=== PATIENT | male | born 1990 | race Hispanic/Latino ===

== ENCOUNTER 2018-01-30 11:58 | Emergency (ER) | payer OTHER, SELFPAY ==
[2018-01-30] MEDS ORDERED: NA CHLORIDE 0.9% 1,000 ML ONE ×2 (12:58→14:17)
--- NOTE | 2018-01-30 13:07 | RAD REPORT ---
EXAM DESCRIPTION: RAD - Chest Single View - 01/30/2018 12:59 pm CLINICAL HISTORY: Chest pain COMPARISON: None. TECHNIQUE: AP portable chest image was obtained 1247 hours . FINDINGS: Lungs are clear. Heart and vasculature are normal. No measurable pleural effusion and no p neumothorax. No gross bony abnormality seen. No acute aortic findings suspected. IMPRESSION: No acute cardiopulmonary process.
[2018-01-30 13:30] LABS: Absolute Lymphocytes (CBC) 1.7 K/uL (0.7-4.9); Absolute Monocytes 0.7 K/uL (0.1-1.3); Absolute Neutrophil 11.4 K/uL (1.8-8.0); Basophils % 0.7 % (0-1.3); Eosinophils % 0.3 % (0-4.4); Hematocrit 42.4 % (39.6-49.0); Lymphocytes % 12.3 % (15.3-44.8); MCH 26.6 pg (27.0-35.0); MCV 81.3 fL (80-100); MPV 8.8 fL (7.6-11.3); Monocytes % 4.8 % (3.3-12.3); RBC Red Blood Cell Count 5.21 M/uL (4.33-5.43)
[2018-01-30 13:35] LABS: Protime INR 1.13
[2018-01-30 13:46] LABS: Potassium 3.8 mEq/L (3.6-5.0)
[2018-01-30 13:52] LABS: Albumin 4.3 g/dL (3.2-5.5); Bilirubin Direct 0.1 mg/dL (0-0.2); Bilirubin Total 0.5 mg/dL (0.3-1.2); Magnesium 1.7 mg/dL (1.8-2.5); Protein, Total 7.9 g/dL (6.0-8.3)
[2018-01-30 13:55] LABS: CKMB Creatine Kinase MB 2.7 ng/ml (0.3-4.0)
[2018-01-30] MEDS ORDERED: MAGNESIUM OXIDE 400 MG TAB ONE (14:17)
[2018-01-30 14:25] LABS: Thyroid Stimulating Hormone 1.12 uIU/mL (0.34-5.60)
--- NOTE | 2018-01-30 15:00 | EKG ---
Test Date: 2018-01-30 Test Time: 12:36:37 Pig Machine Operator: ANA MARIA MEASUREMENT RESULTS: Intervals: Rate: 83 MT: 146 QRSD: 92 QT: 360 QTc: 423 [place]: P: 22 MT: 146 QRS: 11 T: 1 INTERPRETIVE STATEMENTS: Normal sinus rhythm Normal ECG No previous ECG available for comparison Electronically Signed On 01-30-18 14:58:57 CDT by Greg Rosales
[2018-01-30 16:24] LABS: Urine Blood NEGATIVE (NEG); Urine Glucose NEGATIVE (NEG); Urine Protein NEGATIVE (NEG); Urine Specific Gravity 1.015 (1.005-1.030)
--- NOTE | 2018-01-30 16:41 | ER ---
Nurse's Notes [facility] Name: Logan Polk Age: 27 yrs Sex: Male : 1990 Arrival Date: 01/30/2018 Time: 12:02 Bed 24 Private MD: None, None Diagnosis: Palpitations;Chest pain, unspecified Presentation: 01/30 12:05 Presenting complaint: Patient states: Palpitations and SOB while working outside today. 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 Denies cardiac hx/pain. Transition of care: patient was not received from another setting of care. Onset of symptoms was January 30, 2018. Care prior to arrival: None. 12:05 Method Of Arrival: Ambulatory hb 12:05 Acuity: ANTON 3 hb 13:32 Risk Assessment: Do you want to hurt yourself or someone else? Patient reports no aj1 desire to harm self or others. Initial Sepsis Screen: Does the patient meet any 2 criteria? No. Patient's initial sepsis screen is negative. Does the patient have a suspected source of infection? No. Patient's initial sepsis screen is negative. Triage Assessment: 13:32 Respiratory: Onset: The symptoms/episode began/occurred suddenly. aj1 Historical: - Allergies: 12:07 No Known Allergies; hb - Home Meds: 12:07 None [Active]; hb - PMHx: 12:07 None; hb - PSHx: 12:07 None; hb - Immunization history:: Adult Immunizations up to date. - Social history:: Smoking status: Patient uses tobacco products, chewing tobacco. - Ebola Screening: : No symptoms or risks identified at this time. Screenin:30 Abuse screen: Denies threats or abuse. Denies injuries from another. Nutritional aj1 screening: No deficits noted. Tuberculosis screening: No symptoms or risk factors identified. 16:54 Fall Risk None identified. ss Assessment: 13:30 General: Appears in no apparent distress. comfortable, Behavior is calm, cooperative, aj1 appropriate for age. Pain: Denies pain. Neuro: Level of Consciousness is awake, alert, obeys commands, Oriented to person, place, time, situation, Speech is normal, Facial symmetry appears normal. Cardiovascular: Reports palpitations, that has now resolved Denies chest pain, Heart tones S1 S2 present Patient's skin is warm and dry. Rhythm is sinus rhythm. Respiratory: Reports shortness of breath Airway is patent Respiratory effort is even, unlabored, Respiratory pattern is regular, symmetrical, Breath sounds are clear bilaterally. the patient reports symptoms have resolved. GI: No signs and/or symptoms were reported involving the gastrointestinal system. : No signs and/or symptoms were reported regarding the genitourinary system. EENT: No signs and/or symptoms were reported regarding the EENT system. Derm: No signs and/or symptoms reported regarding the dermatologic system. Skin is pink, warm \T\ dry. normal. Musculoskeletal: No signs and/or symptoms reported regarding the musculoskeletal system. Circulation, motion, and sensation intact. 14:25 Reassessment: Patient appears in no apparent distress at this time. No changes from aj1 previously documented assessment. Patient and/or family updated on plan of care and expected duration. Pain level reassessed. Patient is alert, oriented x 3, equal unlabored respirations, skin warm/dry/pink. 15:26 Reassessment: Patient appears in no apparent distress at this time. No changes from aj1 previously documented assessment. Patient and/or family updated on plan of care and expected duration. Pain level reassessed. Patient is alert, oriented x 3, equal unlabored respirations, skin warm/dry/pink. 16:38 Reassessment: Patient appears in no apparent distress at this time. No changes from aj1 previously documented assessment. Patient and/or family updated on plan of care and expected duration. Pain level reassessed. Patient is alert, oriented x 3, equal unlabored respirations, skin warm/dry/pink. Vital Signs: 12:06 BP 158 / 100; Pulse 94; Resp 18; Temp 98.5; Pulse Ox 97% on R/A; Weight 127.01 kg; hb Height 6 ft. (182.88 cm); Pain 0/10; 13:30 BP 119 / 65; Pulse 86; Resp 18; Pulse Ox 97% on R/A; aj1 14:25 BP 108 / 87; Pulse 79; Resp 18; Pulse Ox 100% ; aj1 15:20 BP 132 / 77 Supine; Pulse 78; aj1 15:22 BP 131 / 86 Sitting; Pulse 80; aj1 15:24 BP 132 / 88 Standing; Pulse 78; aj1 16:38 BP 128 / 75; Pulse 76; Resp 18; Pulse Ox 99% on R/A; aj1 12:06 Body Mass Index 37.97 (127.01 kg, 182.88 cm) hb ED Course: 12:02 Patient arrived in ED. sb2 12:02 None, None is Private Physician. sb2 12:02 Zeenat Mondragon [facility]-C [facility]. snw 12:02 Cecil Olivo MD is Attending Physician. snw 12:06 Triage completed. hb 12:08 Arm band placed on left wrist. hb 12:52 X-ray completed. Portable x-ray completed in exam room. jr1 12:53 EKG done, by oil and gas exploration technician. reviewed by Zeenat VALLES. sm3 12:55 Ana Maurer, RN is Primary Nurse. aj1 13:00 XRAY Chest (1 view) In Process Unspecified. EDMS 13:30 Patient has correct armband on for positive identification. Bed in low position. Call aj1 light in reach. Side rails up X 1. quality assurance monitor chassis on. Pulse ox on. NIBP on. 13:30 No provider procedures requiring assistance completed. aj1 16:54 IV discontinued, intact, bleeding controlled, No redness/swelling at site. Pressure ss dressing applied. Administered Medications: 13:28 Drug: NS 0.9% 1000 ml Route: IV; Rate: 1 bolus; Site: right antecubital; aj1 14:24 Follow up: IV Status: Completed infusion; IV Intake: 1000ml aj1 14:24 Drug: Magnesium Oxide 400 mg Route: PO; aj1 15:18 Follow up: Response: No adverse reaction aj1 14:24 Drug: NS 0.9% 1000 ml Route: IV; Rate: 1 bolus; Site: right antecubital; aj1 15:27 Follow up: IV Status: Completed infusion; IV Intake: 1000ml aj1 Intake: 14:24 IV: 1000ml; Total: 1000ml. aj1 15:27 IV: 1000ml; Total: 2000ml. aj1 Outcome: 16:41 Discharge ordered by . snw 16:54 Discharged to home ambulatory. ss 16:54 Condition: good 16:54 Discharge instructions given to patient, family, Instructed on discharge instructions, follow up and referral plans. Demonstrated understanding of instructions, follow-up care. 16:55 Patient left the ED. ss Signatures: Dispatcher [employer] EDOR Ana Maurer RN RN aj1 Zeenat Mondragon, CONTRACT ANALYST-C CONTRACT ANALYST-Csnw Fabienne Schwartz jr1 Eugenia Ovalles RN RN ss Serene Guerra RN RN Oma Melchor sb2 Clary Finney 3
--- NOTE | 2018-01-30 16:41 | EDPHYS ---
Physician Documentation [facility] Name: Logan Polk Age: 27 yrs Sex: Male : 1990 Arrival Date: 01/30/2018 Time: 12:02 Bed 24 Private MD: None, None ED Physician Cecil Olivo HPI: 01/30 13:09 This 27 yrs old Male presents to ER via Ambulatory with complaints of snw Shortness Of Breath. 13:09 The patient has shortness of breath during heavy activity. Onset: The symptoms/episode snw began/occurred suddenly. Duration: The symptoms are intermittent. Associated signs and symptoms: Pertinent positives: dizziness, weakness, felt like he was going to fall. Severity of symptoms: At their worst the symptoms were moderate severe. The patient has not experienced similar symptoms in the past. The patient has not recently seen a physician, went to the medical tent and pt's HR was 170s. Historical: - Allergies: 12:07 No Known Allergies; hb - Home Meds: 12:07 None [Active]; hb - PMHx: 12:07 None; hb - PSHx: 12:07 None; hb - Immunization history:: Adult Immunizations up to date. - Social history:: Smoking status: Patient uses tobacco products, chewing tobacco. - Ebola Screening: : No symptoms or risks identified at this time. ROS: 13:07 Eyes: Negative for injury, pain, redness, and discharge, ENT: Negative for injury, snw pain, and discharge, Neck: Negative for injury, pain, and swelling, Cardiovascular: Negative for chest pain and edema, palpitations 13:07 Back: Negative for injury and pain, : Negative for injury, bleeding, discharge, and swelling, MS/Extremity: Negative for injury and deformity, Skin: Negative for injury, rash, and discoloration. 13:07 Constitutional: Positive for body aches. 13:07 Respiratory: Positive for shortness of breath. 13:07 Abdomen/GI: Positive for nausea. 13:07 Neuro: Positive for dizziness, weakness. Exam: 13:07 Constitutional: This is a well developed, well nourished patient who is awake, alert, snw and in no acute distress. Head/Face: Normocephalic, atraumatic. Eyes: Pupils equal round and reactive to light, extra-ocular motions intact. Lids and lashes normal. Conjunctiva and sclera are non-icteric and not injected. Cornea within normal limits. Periorbital areas with no swelling, redness, or edema. ENT: Nares patent. No nasal discharge, no septal abnormalities noted. Tympanic membranes are normal and external auditory canals are clear. Oropharynx with no redness, swelling, or masses, exudates, or evidence of obstruction, uvula midline. Mucous membranes moist. Neck: Trachea midline, no thyromegaly or masses palpated, and no cervical lymphadenopathy. Supple, full range of motion without nuchal rigidity, or vertebral point tenderness. No Meningismus. Chest/axilla: Normal chest wall appearance and motion. Nontender with no deformity. No lesions are appreciated. Cardiovascular: Regular rate and rhythm with a normal S1 and S2. No gallops, murmurs, or rubs. Normal PMI, no JVD. No pulse deficits. Respiratory: Lungs have equal breath sounds bilaterally, clear to auscultation and percussion. No rales, rhonchi or wheezes noted. No increased work of breathing, no retractions or nasal flaring. Abdomen/GI: Soft, non-tender, with normal bowel sounds. No distension or tympany. No guarding or rebound. No evidence of tenderness throughout. Back: No spinal tenderness. No costovertebral tenderness. Full range of motion. Skin: Warm, dry with normal turgor. Normal color with no rashes, no lesions, and no evidence of cellulitis. MS/ Extremity: Pulses equal, no cyanosis. Neurovascular intact. Full, normal range of motion. Neuro: Awake and alert, GCS 15, oriented to person, place, time, and situation. Cranial nerves II-XII grossly intact. Motor strength 5/5 in all extremities. Sensory grossly intact. Cerebellar exam normal. Normal gait. Vital Signs: 12:06 BP 158 / 100; Pulse 94; Resp 18; Temp 98.5; Pulse Ox 97% on R/A; Weight 127.01 kg; hb Height 6 ft. (182.88 cm); Pain 0/10; 13:30 BP 119 / 65; Pulse 86; Resp 18; Pulse Ox 97% on R/A; aj1 14:25 BP 108 / 87; Pulse 79; Resp 18; Pulse Ox 100% ; aj1 15:20 BP 132 / 77 Supine; Pulse 78; aj1 15:22 BP 131 / 86 Sitting; Pulse 80; aj1 15:24 BP 132 / 88 Standing; Pulse 78; aj1 16:38 BP 128 / 75; Pulse 76; Resp 18; Pulse Ox 99% on R/A; aj1 12:06 Body Mass Index 37.97 (127.01 kg, 182.88 cm) hb MDM: 12:22 Patient medically screened. felipe 17:14 Data reviewed: vital signs, nurses notes. Data interpreted: Pulse oximetry: on room air snw is 99 %. Interpretation: normal. Counseling: I had a detailed discussion with the patient and/or guardian regarding: the historical points, exam findings, and any diagnostic results supporting the discharge/admit diagnosis, lab results, radiology results, the need for outpatient follow up, to return to the emergency department if symptoms worsen or persist or if there are any questions or concerns that arise at home. Response to treatment: the patient's symptoms have markedly improved after treatment. Special discussion: Based on the patient's history, exam, and Dx evaluation, there is no indication for emergent intervention or inpatient Tx. It is understood by the patient/guardian that if the Sx's persist or worsen they need to return immediately for re-evaluation. I have referred the patient to see his PCP for further evaluation of high blood pressure. Based on the history and exam findings, there is no indication for further emergent testing or inpatient evaluation. I discussed with the patient/guardian the need to see the primary care provider for further evaluation of the symptoms. 01/30 12: Order name: Basic Metabolic Panel; Complete Time: 14: snw 01/30 12: Order name: BNP; Complete Time: 15: snw 01/30 12:27 Order name: CBC with Diff; Complete Time: 14:00 snw 01/30 12:27 Order name: Ckmb; Complete Time: 14: snw 01/30 12:27 Order name: CPK; Complete Time: 14: snw 01/30 12:27 Order name: LFT's; Complete Time: 14: snw 01/30 12:27 Order name: Magnesium; Complete Time: 14: snw 01/30 12:27 Order name: PT-INR; Complete Time: 14:00 snw 01/30 12:27 Order name: Ptt, Activated; Complete Time: 14:00 snw 01/30 12:27 Order name: Troponin (emerg Dept Use Only); Complete Time: 14:00 snw 01/30 12:27 Order name: XRAY Chest (1 view); Complete Time: 13:11 snw 01/30 12:27 Order name: TSH; Complete Time: 14:26 snw 01/30 15:56 Order name: Urine Dipstick--Ancillary (enter results); Complete Time: 16:25 ag 01/30 12:27 Order name: EKG; Complete Time: 12:28 snw 01/30 12:27 Order name: Cardiac monitoring; Complete Time: 13:29 snw 01/30 12:27 Order name: EKG - Nurse/Tech; Complete Time: 12:56 snw 01/30 12:27 Order name: IV Saline Lock; Complete Time: 13:29 snw 01/30 12:27 Order name: Labs collected and sent; Complete Time: 13:29 snw 01/30 12:27 Order name: O2 Per Protocol; Complete Time: 13:29 w 01/30 12:27 Order name: O2 Sat Monitoring; Complete Time: 13:29 snw 01/30 12:27 Order name: Urine Dipstick-Ancillary (obtain specimen); Complete Time: 15:54 w 01/30 15:17 Order name: Orthostatics; Complete Time: 15:27 snw 01/30 16:21 Order name: EKG; Complete Time: 16:21 snw Administered Medications: 13:28 Drug: NS 0.9% 1000 ml Route: IV; Rate: 1 bolus; Site: right antecubital; aj1 14:24 Follow up: IV Status: Completed infusion; IV Intake: 1000ml aj1 14:24 Drug: Magnesium Oxide 400 mg Route: PO; aj1 15:18 Follow up: Response: No adverse reaction aj1 14:24 Drug: NS 0.9% 1000 ml Route: IV; Rate: 1 bolus; Site: right antecubital; aj1 15:27 Follow up: IV Status: Completed infusion; IV Intake: 1000ml aj1 Disposition: 01/31 07:25 Co-signature as Attending Physician, Cecil HOYOS I agree with the assessment and felipe plan of care. Disposition: 01/30/18 16:41 Discharged to Home. Impression: Palpitations, Chest pain, unspecified. - Condition is Stable. - Discharge Instructions: Dehydration, Adult, Palpitations, Heat-Related Illness, Rehydration, Adult. - Work release form, Medication Reconciliation Form, Thank You Letter, Antibiotic Education, Prescription Opioid Use form. - Follow up: Private Physician; When: 2 - 3 days; Reason: Recheck today's complaints, Continuance of care, Re-evaluation by your physician. Follow up: Emergency Department; When: As needed; Reason: Worsening of condition. - Notes: Limit caffeine. Increase fluid intake. Avoid excessive heat. Return to ED immediately for worsening symptoms. Signatures: Dispatcher [employer] EDMS Ana Maurer RN RN ajCecil Quiñonez MD MD cha Therrien, Shelly, OLE-C GRAZING AIDE-Eugenia Currie RN RN ss Serene Guerra RN RN Corrections: (The following items were deleted from the chart) 01/30 13:09 13:07 Constitutional: This is a well developed, well nourished patient who is awake, snw alert, and in no acute distress. Head/Face: Normocephalic, atraumatic. Eyes: Pupils equal round and reactive to light, extra-ocular motions intact. Lids and lashes normal. Conjunctiva and sclera are non-icteric and not injected. Cornea within normal limits. Periorbital areas with no swelling, redness, or edema. ENT: Nares patent. No nasal discharge, no septal abnormalities noted. Tympanic membranes are normal and external auditory canals are clear. Oropharynx with no redness, swelling, or masses, exudates, or evidence of obstruction, uvula midline. Mucous membranes moist. Neck: Trachea midline, no thyromegaly or masses palpated, and no cervical lymphadenopathy. Supple, full range of motion without nuchal rigidity, or vertebral point tenderness. No Meningismus. Chest/axilla: Normal chest wall appearance and motion. Nontender with no deformity. No lesions are appreciated. Cardiovascular: Regular rate and rhythm with a normal S1 and S2. No gallops, murmurs, or rubs. Normal PMI, no JVD. No pulse deficits. Respiratory: Lungs have equal breath sounds bilaterally, clear to auscultation and percussion. No rales, rhonchi or wheezes noted. No increased work of breathing, no retractions or nasal flaring. Abdomen/GI: Soft, non-tender, with normal bowel sounds. No distension or tympany. No guarding or rebound. No evidence of tenderness throughout. Back: No spinal tenderness. No costovertebral tenderness. Full range of motion. Skin: Warm, dry with normal turgor. Normal color with no rashes, no lesions, and no evidence of cellulitis. MS/ Extremity: Pulses equal, no cyanosis. Neurovascular intact. Full, normal range of motion. Neuro: Awake and alert, GCS 15, oriented to person, place, time, and situation. Cranial nerves II-XII grossly intact. Motor strength 5/5 in all extremities. Sensory grossly intact. Cerebellar exam normal. Normal gait. snw 16:55 16:41 01/30/2018 16:41 Discharged to Home. Impression: Palpitations; Chest pain, ss unspecified. Condition is Stable. Discharge Instructions: Dehydration, Adult, Palpitations, Heat-Related Illness, Rehydration, Adult. Forms are Work release form, Medication Reconciliation Form, Thank You Letter, Antibiotic Education, Prescription Opioid Use. Follow up: Private Physician; When: 2 - 3 days; Reason: Recheck today's complaints, Continuance of care, Re-evaluation by your physician. Follow up: Emergency Department; When: As needed; Reason: Worsening of condition. snw
--- NOTE | 2018-01-30 21:33 | EKG ---
Test Date: 2018-01-30 Test Time: 16:35:19 Grain Elevator Man: ANA AMRIA MEASUREMENT RESULTS: Intervals: Rate: 71 HI: 166 QRSD: 94 QT: 386 QTc: 419 [place]: P: 35 HI: 166 QRS: 3 T: -6 INTERPRETIVE STATEMENTS: Normal sinus rhythm Normal ECG Compared to ECG 01/30/2018 12:36:37 No significant changes Electronically Signed On 01-30-18 21:32:28 CDT by Greg Rosales
== END 2018-01-30 16:55 | disposition home or self-care (01) ==
LOC: ER 11:58
DX: R00.2 Palpitations (principal); Z72.0 Tobacco use
CPT/HCPCS: 36415; 71045; 80048; 80076; 81003; 82550; 82553; 83735; 83880; 84443; 84484; 85025; 85610; 85730; 93005; 96360; 96361; 99284; J7030

== ENCOUNTER 2018-03-28 13:27 | Emergency (ER) | payer BC, SELFPAY ==
[2018-03-28 14:24] LABS: Absolute Lymphocytes (CBC) 2.1 K/uL (0.7-4.9); Absolute Monocytes 0.8 K/uL (0.1-1.3); Absolute Neutrophil 5.9 K/uL (1.8-8.0); Basophils % 0.6 % (0-1.3); Hematocrit 39.2 % (39.6-49.0); Lymphocytes % 22.5 % (15.3-44.8); MCH 27.7 pg (27.0-35.0); MCV 80.7 fL (80-100); Monocytes % 9.3 % (3.3-12.3); RBC Red Blood Cell Count 4.86 M/uL (4.33-5.43)
--- NOTE | 2018-03-28 14:28 | RAD REPORT ---
EXAM DESCRIPTION: RAD - Chest Single View - 03/28/2018 2:15 pm CLINICAL HISTORY: CHEST PAIN Chest pain. COMPARISON: Chest Single View dated 01/30/2018 FINDINGS: Portable technique limits examination quality. The lungs are grossly clear. The heart is normal in size. No displaced fractures. IMPRESSION: No acute intrathoracic process suspected.
[2018-03-28 14:48] LABS: ALT/SGPT 39 U/L (12-78); AST/SGOT 27 U/L (15-37); Albumin 3.6 g/dL (3.4-5.0); Alkaline Phosphatase 91 U/L (45-117); BUN Blood Urea Nitrogen 14 mg/dL (7-18); Bicarbonate 27 mmol/L (21-32); Bilirubin Direct < 0.1 mg/dL (0-0.2); Bilirubin Total 0.3 mg/dL (0.2-1.0); Creatine Phosphokinase 293 U/L (39-308); Glucose Level 87 mg/dL (74-106); Lipase 143 U/L (73-393); Magnesium 2.3 mg/dL (1.8-2.4); NT PRO-BNP 38 pg/mL (<125); Potassium 3.7 mmol/L (3.5-5.1); Protein, Total 7.6 g/dL (6.4-8.2); Sodium Level 139 mmol/L (136-145)
[2018-03-28 16:13] LABS: Urine Blood NEGATIVE (NEG); Urine Glucose NEGATIVE (NEG); Urine Protein NEGATIVE (NEG); Urine Specific Gravity >1.030 (1.005-1.030)
--- NOTE | 2018-03-28 16:23 | ER ---
Nurse's Notes [facility] Name: Logan Polk Age: 28 yrs Sex: Male : 1990 Arrival Date: 03/28/2018 Time: 13:30 Bed 8 Private MD: None, None Diagnosis: Hypertension;Chest pain, unspecified Presentation: 03/28 13:34 Presenting complaint: Patient states: left sided chest pain with radiation to the left sv side. Denies SOB or dizziness. Was seen at work and BP was DBP 100s. c/o headache the last few days. Transition of care: patient was not received from another setting of care. Onset of symptoms was March 28, 2018. Care prior to arrival: None. 13:34 Method Of Arrival: Ambulatory sv 13:34 Acuity: ANTON 3 sv Historical: - Allergies: 13:36 No Known Allergies; sv - Home Meds: 13:36 None [Active]; sv - PMHx: 13:36 None; sv - PSHx: 13:36 None; sv - Immunization history:: Adult Immunizations up to date. - Social history:: Smoking status: Patient uses tobacco products, chewing tobacco. - Ebola Screening: : No symptoms or risks identified at this time. - Family history:: pertinent for heart disease. - Hospitalizations: : No recent hospitalization is reported. Vital Signs: 13:36 BP 138 / 88; Pulse 88; Resp 18; Temp 98.7; Pulse Ox 98% ; Weight 136.08 kg; Height 6 sv ft. 0 in. (182.88 cm); 15:28 BP 131 / 88; Pulse 79; Resp 18; Pulse Ox 99% on R/A; jb1 13:36 Body Mass Index 40.69 (136.08 kg, 182.88 cm) sv ED Course: 13:30 Patient arrived in ED. mr 13:30 None, None is Private Physician. mr 13:36 Triage completed. sv 13:36 Arm band placed on left wrist. sv 13:40 Jasson Laughlin MD is Attending Physician. rn 13:56 Omar Chambers, OLGA is Primary Nurse. sg 14:12 X-ray completed. Portable x-ray completed in exam room. Patient tolerated procedure jb2 well. 14:15 XRAY Chest (1 view) In Process Unspecified. EDMS 14:17 Initial lab(s) drawn, by me, sent to lab. EKG done, by technician automatic. reviewed by Jasson Laughlin MD. Inserted saline lock: 22 gauge in right antecubital area, using aseptic technique. Blood collected. 14:21 EKG done, by technician automatic. reviewed by Jasson Laughlin MD. sm3 Administered Medications: No medications were administered Outcome: 16:23 Discharge ordered by . rn 16:45 Patient left the ED. sg Signatures: Dispatcher [employer] EDMS Virgilio Rdz1 Tasha Abreu RN RN sv Gay, Steven, RN RN sg Rivera, Maria Erin Peoplesbradly blandon2 Jasson Laughlin MD MD rn Montes, Shakira 3 Corrections: (The following items were deleted from the chart) 13:39 13:36 Pulse 88bpm; Resp 18bpm; Pulse Ox 98%; Temp 98.7F; 136.08 kg; Height 6 ft. 0 in.; sv BMI: 40.6; sv
--- NOTE | 2018-03-28 16:23 | EDPHYS ---
Physician Documentation [facility] Name: Logan Polk Age: 28 yrs Sex: Male : 1990 Arrival Date: 03/28/2018 Time: 13:30 Bed 8 Private MD: None, None ED Physician Jasson Laughlin HPI: 03/28 16:18 This 28 yrs old Male presents to ER via Ambulatory with complaints of High rn Blood Pressure. 16:18 The patient has elevated blood pressure and discovered this work. rn 16:20 The patient or guardian reports chest pain that is located primarily in the anterior rn chest wall, left. The pain does not radiate. Associated signs and symptoms: The patient has no apparent associated signs or symptoms, Pertinent negatives: abdominal pain, diaphoresis, dizziness, headache, lightheadedness, near syncope, palpitations, shortness of breath, syncope, vomiting. The chest pain is described as squeezing. Duration: The patient or guardian reports multiple episodes, that are intermittent, the episodes last approximately 5 second(s). Severity of pain: At its worst the pain was mild in the emergency department the pain has improved. The patient has experienced a previous episode. The patient has not recently seen a physician. Historical: - Allergies: 13:36 No Known Allergies; sv - Home Meds: 13:36 None [Active]; sv - PMHx: 13:36 None; sv - PSHx: 13:36 None; sv - Immunization history:: Adult Immunizations up to date. - Social history:: Smoking status: Patient uses tobacco products, chewing tobacco. - Ebola Screening: : No symptoms or risks identified at this time. - Family history:: pertinent for heart disease. - Hospitalizations: : No recent hospitalization is reported. ROS: 16:20 Constitutional: Negative for fever, chills, and weight loss, Eyes: Negative for injury, rn pain, redness, and discharge, Neck: Negative for injury, pain, and swelling, Cardiovascular: + chest pain Respiratory: Negative for shortness of breath, cough, wheezing, and pleuritic chest pain, Abdomen/GI: Negative for abdominal pain, nausea, vomiting, diarrhea, and constipation, MS/Extremity: Negative for injury and deformity, Skin: Negative for injury, rash, and discoloration, Neuro: Negative for headache, weakness, numbness, tingling, and seizure. Exam: 16:20 Constitutional: This is a well developed, well nourished patient who is awake, alert, rn and in no acute distress. Head/Face: Normocephalic, atraumatic. Eyes: Pupils equal round and reactive to light, extra-ocular motions intact. Lids and lashes normal. Conjunctiva and sclera are non-icteric and not injected. Cornea within normal limits. Periorbital areas with no swelling, redness, or edema. Neck: Trachea midline, no thyromegaly or masses palpated, and no cervical lymphadenopathy. Supple, full range of motion without nuchal rigidity, or vertebral point tenderness. No Meningismus. Chest/axilla: Normal chest wall appearance and motion. Nontender with no deformity. No lesions are appreciated. Cardiovascular: Regular rate and rhythm with a normal S1 and S2. No gallops, murmurs, or rubs. Normal PMI, no JVD. No pulse deficits. Respiratory: Lungs have equal breath sounds bilaterally, clear to auscultation and percussion. No rales, rhonchi or wheezes noted. No increased work of breathing, no retractions or nasal flaring. Abdomen/GI: Soft, non-tender, with normal bowel sounds. No distension or tympany. No guarding or rebound. No evidence of tenderness throughout. MS/ Extremity: Pulses equal, no cyanosis. Neurovascular intact. Full, normal range of motion. Equal circumference. Neuro: Awake and alert, GCS 15, oriented to person, place, time, and situation. Cranial nerves II-XII grossly intact. Motor strength 5/5 in all extremities. Sensory grossly intact. Vital Signs: 13:36 BP 138 / 88; Pulse 88; Resp 18; Temp 98.7; Pulse Ox 98% ; Weight 136.08 kg; Height 6 sv ft. 0 in. (182.88 cm); 15:28 BP 131 / 88; Pulse 79; Resp 18; Pulse Ox 99% on R/A; jb1 13:36 Body Mass Index 40.69 (136.08 kg, 182.88 cm) sv MDM: 13:40 Patient medically screened. rn 16:20 Differential diagnosis: acute myocardial infarction, acute pericarditis, anxiety, rn coronary artery disease chest wall pain, costochondritis, esophagitis, pleurisy, pneumothorax. Data reviewed: vital signs, nurses notes, lab test result(s), radiologic studies, plain films, and as a result, I will discharge patient. Counseling: I had a detailed discussion with the patient and/or guardian regarding: the historical points, exam findings, and any diagnostic results supporting the discharge/admit diagnosis, lab results, radiology results, the need for outpatient follow up, to return to the emergency department if symptoms worsen or persist or if there are any questions or concerns that arise at home. Special discussion: I discussed with the patient/guardian in detail that at this point there is no indication for admission to the hospital. It is understood, however, that if the symptoms persist or worsen the patient needs to return immediately for re-evaluation. Based on the history and exam findings, there is no indication for further emergent testing or inpatient evaluation. I discussed with the patient/guardian the need to see the director international for further evaluation of the symptoms. I discussed with the patient/guardian the need to see the primary care provider for further evaluation of the symptoms. 16:23 ED course: Chest pain free, asymptomatic. rn 03/28 13:49 Order name: Basic Metabolic Panel; Complete Time: 16: rn 03/28 13:49 Order name: CBC with Diff; Complete Time: 16: rn 03/28 13:49 Order name: Ckmb; Complete Time: 16: rn 03/28 13:49 Order name: CPK; Complete Time: 16: rn 03/28 13:49 Order name: LFT's; Complete Time: 16: rn 03/28 13:49 Order name: Magnesium; Complete Time: 16: rn 03/28 13:43 Order name: EKG; Complete Time: 13:43 sv 03/28 13:43 Order name: EKG - Nurse/Tech; Complete Time: 14:20 sv 03/28 13:49 Order name: NT PRO-BNP; Complete Time: 16: rn 03/28 13:49 Order name: Troponin (emerg Dept Use Only); Complete Time: 16: rn 03/28 13:49 Order name: XRAY Chest (1 view); Complete Time: 16:11 rn 03/28 13:49 Order name: Lipase; Complete Time: 16: rn 03/28 16:06 Order name: Urine Dipstick--Ancillary (enter results) bd 03/28 16:07 Order name: Urine Dipstick-Ancillary [facility] 03/28 13:49 Order name: Cardiac monitoring; Complete Time: 14:19 rn 03/28 13:49 Order name: IV Saline Lock; Complete Time: 14:19 rn 03/28 13:49 Order name: Labs collected and sent; Complete Time: 14:20 rn 03/28 13:49 Order name: O2 Per Protocol; Complete Time: 14:20 rn 03/28 13:49 Order name: O2 Sat Monitoring; Complete Time: 14:20 rn Administered Medications: No medications were administered Disposition: 03/28/18 16:23 Discharged to Home. Impression: Hypertension, Chest pain, unspecified. - Condition is Stable. - Discharge Instructions: Nonspecific Chest Pain, Hypertension. - Work release form, Medication Reconciliation Form, Thank You Letter, Antibiotic Education, Prescription Opioid Use form. - Follow up: Private Physician; When: As needed; Reason: Recheck today's complaints, Re-evaluation by your physician. - Problem is new. - Symptoms have improved. Signatures: Dispatcher [employer] [facility] Tasha Abreu RN OLGA sv Omar Chambers RN RN sg Jasson Laughlin MD MD learning and development administrator: (The following items were deleted from the chart) 16:45 16:23 03/28/2018 16:23 Discharged to Home. Impression: Hypertension; Chest pain, sg unspecified. Condition is Stable. Forms are Medication Reconciliation Form, Thank You Letter, Antibiotic Education, Prescription Opioid Use. Follow up: Private Physician; When: As needed; Reason: Recheck today's complaints, Re-evaluation by your physician. Problem is new. Symptoms have improved. rn
--- NOTE | 2018-03-28 16:39 | EKG ---
Test Date: 2018-03-28 Test Time: 13:57:31 Financial Sales Associate: RENATA MEASUREMENT RESULTS: Intervals: Rate: 73 MI: 158 QRSD: 90 QT: 368 QTc: 405 [place]: P: 47 MI: 158 QRS: 21 T: 9 INTERPRETIVE STATEMENTS: Normal sinus rhythm Normal ECG Compared to ECG 01/30/2018 16:35:19 No significant changes Electronically Signed On 03-28-18 16:38:31 CDT by Darrick Salomon
== END 2018-03-28 16:45 | disposition home or self-care (01) ==
LOC: ER 13:27
DX: I10 Essential (primary) hypertension (principal); R07.9 Chest pain, unspecified; F17.210 Nicotine dependence, cigarettes, uncomplicated
CPT/HCPCS: 36415; 71045; 80048; 80076; 81003; 82550; 82553; 83690; 83735; 83880; 84484; 85025; 93005; 99284